=== PATIENT | female | born 1980 | race Caucasian/White ===

== ENCOUNTER → 2022-05-12 10:00 | Outpatient (CLI) | payer BC, SELFPAY ==
--- NOTE | 2022-05-12 10:09 | DI.MG.S_ITS ---
BILATERAL DIGITAL SCREENING MAMMOGRAM 3D/2D WITH CAD: 05/12/2022 CLINICAL: Baseline exam. Routine screening. No prior exams were available for comparison. Both breasts are heterogeneously dense, which may obscure small masses (category c / 51-75% glandular tissue). Current study was also evaluated with a Computer Aided Detection (CAD) system. There are regional punctate round calcifications in the right breast at 12 o'clock posterior depth. There is a 1.6 cm oval equal density focal asymmetry in the left breast central to the nipple middle depth. No other significant masses or calcifications are seen in either breast. IMPRESSION: INCOMPLETE: NEEDS ADDITIONAL IMAGING EVALUATION The regional punctate round calcifications in the right breast at 12 o'clock posterior depth are indeterminate. Spot magnification views are recommended. The 1.6 cm oval equal density focal asymmetry in the left breast central to the nipple middle depth resembles a cyst, a lymph node, or a fibroadenoma and is indeterminate. Additional views with possible ultrasound are recommended. Based on the Tyrer Cuzick model (a risk assessment model) the patient's lifetime risk is 11.1% and her 10 year risk is 1.6%. According to the ACR, ACS, and NCCN guidelines, an annual breast MRI exam along with mammogram is recommended if the patient's lifetime risk is 20% or greater. This exam was interpreted at Station ID: [id number]. NOTE: For mammograms, a report in lay terms will be sent to the patient. Approximately 15% of breast malignancies will not be visualized mammographically. In the management of a palpable breast mass, a negative mammogram must not discourage biopsy of a clinically suspicious lesion. Electronically Signed By: Raciel correa/:05/14/2022 07:32:42 letter sent: Additional Imaging Needed ACR BI-RADS Category 0: Incomplete 3340F
== END ==
PROVIDERS: PCP Family Medicine; Referring Provider Family Medicine; Visit Provider Family Medicine
DX: Z12.31 Encounter for screening mammogram for malignant neoplasm of breast (principal)
CPT/HCPCS: 77063; 77067

== ENCOUNTER 2022-09-03 08:03 | Observation (INO) | payer BC, SELFPAY ==
[2022-09-03] VITALS (22 sets, daily range): BP systolic 123–167; BP diastolic 62–91; PULSE 61–84; RESP 12–18; TEMP 36.2–37.6; O2SAT 95–99; BMI 31.1
--- NOTE | 2022-09-03 | PATH_ITS ---
[facility] Accession Number: [id number] No. of containers..01 Tissue . 01 Material submitted: . gallbladder - GALLBLADDER . 01 Diagnosis: Gallbladder, Cholecystectomy: Mixed acute and chronic calculous cholecystitis. Negative for significant atypia and malignancy. [facility] 09/06/2022 1316 Local . 01 Electronically signed: . Barbra Lopez MD, Pathologist NPI- [id number] . 01 Gross description: . The specimen is received in formalin labeled with the patient's name, , and gallbladder, and consists of an intact gallbladder measuring 7.7 x 3.3 x 2.0 cm. The cystic duct is received closed with a clamp, is inked blue, and no pericystic lymph node is identified. The lumen contains a minimal amount of brown viscous bile. Numerous yellow to green, roughened calculi measuring up to 2.7 cm in greatest dimension are grossly obstructing the cystic duct. The mucosa is brown and velvety with multiple pinpoint yellow areas consistent with cholesterol and minor areas of denuding consistent with previous gallstones. No polyps or lesions are identified. The mooney average 0.2 cm thick. Quality Controller sections to include the cystic duct margin and full-thickness sections are submitted in cassette A1. ([id number]) /FRR 09/05/2022 0247 Local . 01 Pathologist provided ICD-10: K81.0 . 01 CPT . 463104 Specimen Comment: A courtesy copy of this report has been sent to [phone] Performed at: 01 [facility] [address] [place] [address] [address] [facility], [place], [place] [id number] MD Julio Bustos MD Phone: [phone]
--- NOTE | 2022-09-03 08:25 | ED_ITS ---
HPI - Abdominal Pain General Chief Complaint: Abdominal Pain Stated Complaint: RT side hurts throwing up Time Seen by Provider: 09/03/22 08:25 Source: patient Mode of arrival: Family Vehicle Limitations: no limitations History of Present Illness HPI narrative: This is a 41-year-old female with history of prior C-sections, denies any daily medications with complaint of sudden onset right-sided abdominal pain. Patient states it woke her from sleep this morning. She states she is had nausea and vomiting. She denies fevers or chills denies chest pain or shortness of breath. States her emesis was nonbloody. Patient states pain is sort of right upper abdomen does not really radiate to her back or flank. She denies any lower abdominal pain. She denies any left-sided pain. Patient states has been persistent. She denies diarrhea, constipation or black or bloody stools. No dysuria, urgency, frequency or hematuria. No vaginal bleeding or discharge. Patient states she has not IUD in place. Patient has not had similar symptoms in the past she states she is had prior denies any other prior surgeries. She states she gets a rash from tetracycline which occurred when she was a child. No other known drug allergies. No tobacco, denies alcohol or illicit drug use. Patient states she did not take anything for pain or nausea before she arrived. She is accompanied by her sister today. Patient's primary care is Dr. Carroll. Related Data Previous Rx's Medication Instructions Recorded hydrocodone 5 mg-acetaminophen 325 1 tab PO Q8H PRN pain #10 tabs 09/03/22 mg tablet Allergies Allergy/AdvReac Type Severity Reaction Status Date / Time Tetracyclines Allergy Rash Verified 09/03/22 15:03 Review of Systems Review of Systems ROS Unobtainable: All systems reviewed & are unremarkable except as noted in HPI and below Patient History Social History household members: family Smoking Status: Never smoker alcohol intake: never Smoking Status: Never smoker Substance Use Type: does not use Exam Narrative Exam Narrative: GENERAL: Alert and oriented x three, moderate distress. HEENT: Head normocephalic, atraumatic, EOMI, pupils reactive, face symmetric, moist mucous membranes NECK: Supple, full range of motion CARDIOVASCULAR: Regular rate and rhythm without murmurs, rubs or gallops. RESPIRATORY: Breath sounds equal bilaterally, no wheezes rales or rhonchi. ABDOMEN: Soft, positive for right upper quadrant. Normoactive bowel sounds all 4 quadrants. No guarding or rebound, rigidity, no mass, no hepatosplenomegaly noted. : No CVA tenderness bilaterally. EXTREMITIES: Normal range of motion, no clubbing or edema. Neurovascularly intact NEUROLOGICAL: Cranial nerves II through XII grossly intact. Moving all extremities SKIN: Warm, dry, no petechiae, no rashes or lesions. Initial Vital Signs Initial Vital Signs: Vital Signs Temperature 97.2 F L 09/03/22 08:11 Pulse Rate 69 09/03/22 08:11 Respiratory Rate 16 09/03/22 08:11 Blood Pressure 150/72 H 09/03/22 08:11 Pulse Oximetry 99 09/03/22 08:11 Oxygen Delivery Method Room Air 09/03/22 08:11 Course Orders Ordered: ED Orders 09/03/22 09:40 Urine Culture Stat Urine Microscopic Stat 09/03/22 10:53 COVID19 -Nasal RAPID Stat Discontinued Medications Bupivacaine HCl/Epinephrine Bitart (Bupivacaine 0.25% W/ Epi 30 Ml Vial) 30 ml INJ INTRA-OP ONE Stop: 09/03/22 15:30 Last Admin: 09/03/22 15:29 Dose: 13 ml Documented By: Hydromorphone HCl (Hydromorphone 2 Mg Inj) 0 mg IV Q5MIN PRN PRN Reason: Pain, Mild (1-3) Sodium Chloride (Normal Saline 0.9%) 1,000 mls @ 1,000 mls/hr IV BOLUS ONE Stop: 09/03/22 09:33 Last Infusion: 09/03/22 09:38 Dose: 0 mls/hr Documented By: Admin: 09/03/22 08:41 Dose: 1,000 mls/hr Documented By: AT Piperacillin Sod/Tazobactam (Sod 4.5 gm/ Sodium Chloride) 100 mls @ 200 mls/hr IV NOW ONE Stop: 09/03/22 10:54 Last Infusion: 09/03/22 12:13 Dose: 0 mls/hr Documented By: Admin: 09/03/22 11:09 Dose: 200 mls/hr Documented By: AT Lactated Ringer's (Lactated Ringers) 1,000 mls @ 42 mls/hr IV CONT ANTOINE Last Admin: 09/03/22 15:05 Dose: 42 mls/hr Documented By: PEDRITO Cefazolin Sodium/Dextrose (Ancef) 100 mls @ 200 mls/hr IV NOW ONE Stop: 09/03/22 15:27 Last Infusion: 09/03/22 15:22 Dose: 0 mls/hr Documented By: Admin: 09/03/22 15:12 Dose: 200 mls/hr Documented By: AYANNA Acetaminophen (Ofirmev) 1,000 mg in 100 mls @ 400 mls/hr IV NOW ONE Stop: 09/03/22 15:12 Last Infusion: 09/03/22 15:27 Dose: 0 mls/hr Documented By: Admin: 09/03/22 15:22 Dose: 400 mls/hr Documented By: AYANNA Ketorolac Tromethamine (Ketorolac 30 Mg/Ml Vial) 15 mg IV NOW ONE Stop: 09/03/22 08:35 Last Admin: 09/03/22 08:41 Dose: 15 mg Documented By: AT Ketorolac Tromethamine (Ketorolac 30 Mg/Ml Vial) 15 mg IV Q6H ANTOINE Stop: 09/08/22 10:57 Metoclopramide HCl (Metoclopramide 10 Mg/2 Ml Inj) 10 mg IV NOW PRN PRN Reason: Nausea And Vomiting Morphine Sulfate (Morphine 2 Mg/Ml Inj) 2 mg IV Q4HR PRN PRN Reason: Pain, Moderate (4-6) Last Admin: 09/03/22 11:08 Dose: 2 mg Documented By: AT Ondansetron HCl (Ondansetron 4 Mg Odt) 4 mg PO NOW PRN PRN Reason: Nausea And Vomiting Ondansetron HCl (Ondansetron 4 Mg/2 Ml Inj) 4 mg IV NOW PRN PRN Reason: Nausea And Vomiting Last Admin: 09/03/22 08:41 Dose: 4 mg Documented By: AT Oxycodone HCl (Oxycodone Ir 5 Mg Tablet) 5 mg PO PACUNOW PRN PRN Reason: Mild or moderate pain Last Admin: 09/03/22 16:56 Dose: 5 mg Documented By: CB Vital Signs Vital signs: Vital Signs - 8 hr 09/03/22 10:30 09/03/22 10:30 09/03/22 11:00 Pulse Rate 81 75 Respiratory Rate 18 Blood Pressure 138/72 Pulse Oximetry 97 99 Oxygen Delivery Method Room Air 09/03/22 11:01 09/03/22 11:01 Pulse Rate 84 Respiratory Rate Blood Pressure 167/70 H Pulse Oximetry 99 Oxygen Delivery Method MDM - Abdominal Pain Lab Data 09/03/22 09:00 09/03/22 09:00 Labs: Lab Results 09/03/22 09/03/22 09/03/22 Range/Units 09:00 09:00 09:40 WBC 18.4 H (4.5-11.0) X10^3/uL RBC 5.67 H (4.0-5.2) X10^6/uL Hgb 15.8 (12.0-16.0) g/dL Hct 47.5 H (36-46) % MCV 83.8 (80-100) fL MCH 27.9 (26-34) PG MCHC 33.3 (30-36) % RDW 14.3 (11.6-14.8) % Plt Count 314 (150-400) X10^3/uL Neut % (Auto) 91.1 H (50-75) % Lymph % (Auto) 5.6 L (25-40) % [place] % (Auto) 2.9 L (3-14) % Eos % (Auto) 0.1 L (2-4) % Baso % (Auto) 0.3 (0-2) % Neut # (Auto) 53684 H (2451-7984) /uL Lymph # (Auto) 1000 L (0317-3904) /uL [place] # (Auto) 500 (0-900) /uL Eos # (Auto) 0 (0-450) /uL Baso # (Auto) 100 (0-100) /uL Sodium 141 (137-145) mmol/L Potassium 3.3 L (3.4-5.1) mmol/L Chloride 107 (98-107) mmol/L Carbon Dioxide 22 (22-32) mmol/L BUN 8 (7-17) mg/dL Creatinine 0.69 (0.52-1.04) mg/dL Estimated GFR > 60 (>60) mL/min BUN/Creatinine Ratio 11.6 (6-22) Glucose 113 H (70-100) mg/dL Calcium 9.6 (8.4-10.2) mg/dL Total Bilirubin 0.7 (0.2-1.3) mg/dL AST 25 (14-36) IU/L ALT 25 (<35) IU/L Alkaline Phosphatase 77 (38-126) U/L Total Protein 8.5 H (6.3-8.2) g/dL Albumin 4.8 (3.5-5.0) g/dL Globulin 3.7 (1.7-4.1) g/dL Albumin/Globulin Ratio 1.3 (1.0-2.8) Lipase 71 (23-300) U/L Urine RBC None seen (0-5/HPF) Urine WBC None seen (0-5/HPF) Ur Squamous Epith Cells 1-5 /hpf (0-5/HPF) Urine Bacteria Moderate (10-30) H (None) Ur Culture Indicated? Specimen cultured SARS-CoV-2 (PCR) (Negative) 09/03/22 Range/Units 10:53 WBC (4.5-11.0) X10^3/uL RBC (4.0-5.2) X10^6/uL Hgb (12.0-16.0) g/dL Hct (36-46) % MCV (80-100) fL MCH (26-34) PG MCHC (30-36) % RDW (11.6-14.8) % Plt Count (150-400) X10^3/uL Neut % (Auto) (50-75) % Lymph % (Auto) (25-40) % [place] % (Auto) (3-14) % Eos % (Auto) (2-4) % Baso % (Auto) (0-2) % Neut # (Auto) (1348-3121) /uL Lymph # (Auto) (2613-1891) /uL [place] # (Auto) (0-900) /uL Eos # (Auto) (0-450) /uL Baso # (Auto) (0-100) /uL Sodium (137-145) mmol/L Potassium (3.4-5.1) mmol/L Chloride (98-107) mmol/L Carbon Dioxide (22-32) mmol/L BUN (7-17) mg/dL Creatinine (0.52-1.04) mg/dL Estimated GFR (>60) mL/min BUN/Creatinine Ratio (6-22) Glucose (70-100) mg/dL Calcium (8.4-10.2) mg/dL Total Bilirubin (0.2-1.3) mg/dL AST (14-36) IU/L ALT (<35) IU/L Alkaline Phosphatase (38-126) U/L Total Protein (6.3-8.2) g/dL Albumin (3.5-5.0) g/dL Globulin (1.7-4.1) g/dL Albumin/Globulin Ratio (1.0-2.8) Lipase (23-300) U/L Urine RBC (0-5/HPF) Urine WBC (0-5/HPF) Ur Squamous Epith Cells (0-5/HPF) Urine Bacteria (None) Ur Culture Indicated? SARS-CoV-2 (PCR) Negative (Negative) Point of care testing: Point of Care Testing Test Results Negative Urine Dip Bedside Urine Glucose Negative Bedside Urine Bilirubin - Negative Bedside Urine Ketone + 15 Urine Specific [place] 1.025 Bedside Urine Occult Blood - Negative Bedside Urine pH 6.0 Bedside Urine Protein + 30 Bedside Urine Urobilinogen - Negative Bedside Urine Nitrite - Negative Bedside Urine Leukocytes - Negative Esterase Imaging Data US - abdomen: Radiologist's Impression: [place] [address] Ultrasound Report Signed Patient: Ashtyn Robles MR#: [id number] : 1980 Acct:[id number] Age/Sex: 41 / F Date of Service: 09/03/22 Loc: ED Accession Number: [id number] ?? Procedure: US abdomen limited Ordering Provider: Cat Feliciano D.O. PROCEDURE: US ABDOMEN LIMITED ? INDICATIONS:? RIGHT UPPER QUADRANT PAIN ? TECHNIQUE:? Real-time focused scanning was performed of the abdomen, with image doc umentation.? ? COMPARISON:? None. ? FINDINGS:? Liver measures 15.6 cm.? There are multiple foci of increased echogenicity within the gallbladder the largest measuring 2.7 cm. Wall thickness measures 3.4 mm. Common bile duct measures 6.3 mm. ? IMPRESSION:? Cholelithiasis with wall thickening most suspicious for cholecystitis. ? ? Dictated by: Cris Valdivia M.D. on 09/03/2022 at 10:38 ? ? Approved by: Cris Valdivia M.D. on 09/03/2022 at 10:38?? [facility] Narrative Medical decision making narrative: This is a 41-year-old female with sudden onset right upper quadrant pain nausea and vomiting. Patient states it woke her from sleep. She denies prior episodes in the past. Patient is quite tender in the right upper quadrant, she is not tender in the right lower quadrant. Vital signs are stable. Patient I suspect may have gallbladder disease. Patient had CBC, CMP, lipase, urine and plan for right upper quadrant ultrasound. Patient received medication for nausea and vomiting as well as pain fluids. These show patient ultrasound shows cholelithiasis with wall thickening suspicious for cholecystitis multiple foci including largest 2.7 cm suspicious for possible stone. Patient pain was improved after Toradol. Discussed findings with patient as well as Dr. Johns who is on for General surgery. Plan for admission for cholecystectomy, patient was covered with a dose of IV Zosyn, she given some additional pain medication as pain is improved but was starting to recur she is NPO. Patient has not met septic criteria so was not given 30 cc/kilos bolus and lactate cultures were not obtained as patient appears nontoxic without any other septic criteria. Discharge Plan Departure Patient Disposition: Admitted as Observation Clinical Impression: Cholelithiasis, Acute cholecystitis Admit Date/Time: 09/03/22 11:06 Admit Provider: Kishor Johns
--- NOTE | 2022-09-03 08:34 | DI.US.S_ITS ---
PROCEDURE: US ABDOMEN LIMITED INDICATIONS: RIGHT UPPER QUADRANT PAIN TECHNIQUE: Real-time focused scanning was performed of the abdomen, with image documentation. COMPARISON: None. FINDINGS: Liver measures 15.6 cm. There are multiple foci of increased echogenicity within the gallbladder the largest measuring 2.7 cm. Wall thickness measures 3.4 mm. Common bile duct measures 6.3 mm. IMPRESSION: Cholelithiasis with wall thickening most suspicious for cholecystitis. Dictated by: Cris Valdivia M.D. on 09/03/2022 at 10:38 Approved by: Cris Valdivia M.D. on 09/03/2022 at 10:38
[2022-09-03] MEDS: ONDANSETRON 4 MG/2 ML INJ IV (08:41)
[2022-09-03] MEDS: SODIUM CHLORIDE 0.9% 1,000 ML 1000 ML IV (08:41)
[2022-09-03] MEDS: KETOROLAC 30 MG/ML VIAL 15 MG IV (08:41)
[2022-09-03 09:07] LABS: Add Manual Diff / Slide Review NO; Basophils Absolute Auto 100 /uL (0-100); Basophils Percent Auto 0.3 % (0-2); Eosinophils Absolute Auto 0 /uL (0-450); Eosinophils Percent Auto 0.1 % (2-4); Hematocrit 47.5 % (36-46); Hemoglobin 15.8 g/dL (12.0-16.0); Lymphocytes Absolute Auto 1000 /uL (1100-4500); Lymphocytes Percent Auto 5.6 % (25-40); Mean Corpuscular HGB Conc 33.3 % (30-36); Mean Corpuscular Hemoglobin 27.9 PG (26-34); Mean Corpuscular Volume 83.8 fL (80-100); Monocytes Absolute Auto 500 /uL (0-900); Monocytes Percent Auto 2.9 % (3-14); Neutrophils Absolute Auto 16700 /uL (1500-7000); Neutrophils Percent Auto 91.1 % (50-75); Platelet Count 314 X10^3/uL (150-400); Red Blood Cell Count 5.67 X10^6/uL (4.0-5.2); Red Cell Distribution Width 14.3 % (11.6-14.8); White Blood Cell Count 18.4 X10^3/uL (4.5-11.0)
[2022-09-03 09:20] LABS: Alanine Aminotransferase 25 IU/L (<35); Albumin 4.8 g/dL (3.5-5.0); Albumin Globulin Ratio 1.3 (1.0-2.8); Alkaline Phosphatase 77 U/L (38-126); Aspartate Aminotransferase 25 IU/L (14-36); BUN Creatinine Ratio 11.6 (6-22); Bilirubin Total 0.7 mg/dL (0.2-1.3); Blood Urea Nitrogen 8 mg/dL (7-17); Calcium 9.6 mg/dL (8.4-10.2); Carbon Dioxide 22 mmol/L (22-32); Chloride 107 mmol/L (98-107); Estimated Glomerular Filt Rate > 60 mL/min (>60); Globulin 3.7 g/dL (1.7-4.1); Glucose 113 mg/dL (70-100); HEMOLYSIS < 15 (0-50); Lipase 71 U/L (23-300); Potassium 3.3 mmol/L (3.4-5.1); Sodium 141 mmol/L (137-145); Total Protein 8.5 g/dL (6.3-8.2)
[2022-09-03 10:03] LABS: Bacteria Urine Moderate (10-30); Culture Indicated Urine Specimen Cultured; RBC Urine None Seen (0-5/HPF); Squamous Epithelial Cell Urine 1-5 /HPF (0-5/HPF); WBC Urine None Seen (0-5/HPF)
[2022-09-03] MEDS: MORPHINE 2 MG/ML INJ IV (11:08)
[2022-09-03] MEDS: PIPERACILLIN/TAZO 4.5 GM in SODIUM CHLORIDE 0.9% 100 ML IV (11:09)
[2022-09-03 11:23] LABS: COVID19 -Nasal RAPID Negative (Negative)
--- NOTE | 2022-09-03 12:45 | PM.HP.1 ---
History of Present Illness History of Present Illness Date Patient Seen: 09/03/22 Time Patient Seen: 12:46 Chief complaint: RT side hurts throwing up Narrative: Ashtyn is a 41-year-old woman who presented to the emergency department today with right-sided abdominal pain and nausea and vomiting. The pain came on this morning and woke her from sleep. She reports that the pain was unbearable before she got medicated in the ER. She has never had similar pain like this before. White count was elevated but liver enzymes were normal. Ultrasound showed gallstones and thickening of the gallbladder wall. Patient History Family & Social History Safety & Behavioral: Feels Safe in Current Yes Environment Been Physically Hurt or No Threatened By a Person Tobacco & Substance use: Smoking Status Never smoker Substance Use Type does not use Meds Home Medications and Allergies Allergies Allergy/AdvReac Type Severity Reaction Status Date / Time Tetracyclines Allergy Rash Verified 09/03/22 08:13 Exam Vital Signs (past 8 hours): - 09/03/22 08:11 09/03/22 09:23 09/03/22 09:30 Temperature 97.2 F L Pulse Rate 69 74 78 Respiratory Rate 16 Blood Pressure 150/72 H Pulse Oximetry 99 97 97 Oxygen Delivery Method Room Air 09/03/22 09:41 09/03/22 09:41 09/03/22 10:00 Temperature Pulse Rate 74 Respiratory Rate Blood Pressure 136/71 130/63 Pulse Oximetry 95 Oxygen Delivery Method Room Air 09/03/22 10:00 09/03/22 10:30 09/03/22 10:30 Temperature Pulse Rate 79 81 Respiratory Rate Blood Pressure 138/72 Pulse Oximetry 97 97 Oxygen Delivery Method 09/03/22 11:00 09/03/22 11:01 09/03/22 11:01 Temperature Pulse Rate 75 84 Respiratory Rate 18 Blood Pressure 167/70 H Pulse Oximetry 99 99 Oxygen Delivery Method Room Air Oxygen Delivery Method Room Air Narrative Exam Narrative: Right upper quadrant is tender to palpation Objective Labs 09/03/22 09:00 09/03/22 09:00 Labs: Laboratory Results - last 24 hr 09/03/22 09/03/22 09/03/22 09:00 09:00 09:40 WBC 18.4 H RBC 5.67 H Hgb 15.8 Hct 47.5 H MCV 83.8 MCH 27.9 MCHC 33.3 RDW 14.3 Plt Count 314 Neut % (Auto) 91.1 H Lymph % (Auto) 5.6 L [place] % (Auto) 2.9 L Eos % (Auto) 0.1 L Baso % (Auto) 0.3 Neut # (Auto) 01996 H Lymph # (Auto) 1000 L [place] # (Auto) 500 Eos # (Auto) 0 Baso # (Auto) 100 Sodium 141 Potassium 3.3 L Chloride 107 Carbon Dioxide 22 BUN 8 Creatinine 0.69 Estimated GFR > 60 BUN/Creatinine Ratio 11.6 Glucose 113 H Calcium 9.6 Total Bilirubin 0.7 AST 25 ALT 25 Alkaline Phosphatase 77 Total Protein 8.5 H Albumin 4.8 Globulin 3.7 Albumin/Globulin Ratio 1.3 Lipase 71 Urine RBC None seen Urine WBC None seen Ur Squamous Epith Cells 1-5 /hpf Urine Bacteria Moderate (10-30) H Ur Culture Indicated? Specimen cultured SARS-CoV-2 (PCR) 09/03/22 10:53 WBC RBC Hgb Hct MCV MCH MCHC RDW Plt Count Neut % (Auto) Lymph % (Auto) [place] % (Auto) Eos % (Auto) Baso % (Auto) Neut # (Auto) Lymph # (Auto) [place] # (Auto) Eos # (Auto) Baso # (Auto) Sodium Potassium Chloride Carbon Dioxide BUN Creatinine Estimated GFR BUN/Creatinine Ratio Glucose Calcium Total Bilirubin AST ALT Alkaline Phosphatase Total Protein Albumin Globulin Albumin/Globulin Ratio Lipase Urine RBC Urine WBC Ur Squamous Epith Cells Urine Bacteria Ur Culture Indicated? SARS-CoV-2 (PCR) Negative Assessment & Plan Assessment and plan (1) Acute cholecystitis: Status: Acute Plan 41-year-old woman with symptomatic cholelithiasis versus acute cholecystitis. We reviewed the risks and benefits of laparoscopic cholecystectomy and she would like to proceed. Time Spent With Patient Critical Care time: I spent a total of [] minutes of critical care time on this patient's care today; this time is exclusive of procedural time.
[2022-09-03] MEDS: LACTATED RINGERS 1,000 ML 42 ML IV (15:05)
[2022-09-03] MEDS: CEFAZOLIN 2 GM/100 ML PREMIX 100 ML IV (15:12)
[2022-09-03] MEDS: ACETAMINOPHEN IV 1,000 MG/100 ML VIAL 400 MG IV (15:22)
--- NOTE | 2022-09-03 15:24 | SUR.OPER ---
Supine on padded OR bed, head on pillow, safety belt at thigh, Bilateral arms secured on padded arm board <90 degrees abduction. Legs uncrossed. Padded footboard in place. Tape over blanket to secure lower legs. Pt positioned per direction and supervision of Dr Johns.
[2022-09-03] MEDS: BUPIVACAINE 0.25% W/ EPI 30 ML VIAL INJ (15:29)
--- NOTE | 2022-09-03 16:26 | PM.OP.1 ---
Operative Date/Time/Diagnoses Date of procedure: 09/03/22 Time of procedure: 16:26 Pre-op diagnosis: Cholelithiasis Post-op diagnosis: same Procedure & Clinicians Procedure: Laparoscopic cholecystectomy Same procedure as scheduled: Yes Surgeon: Kishor Johns Operative Notes Procedure in detail: The patient was given preoperative antibiotics. The patient was brought to the operating room, placed on the table in the supine position. General endotracheal anesthesia was induced. The abdomen was prepped and draped. A time-out was performed. We made a 1 cm infraumbilical incision. We dissected down to the base of the umbilical stalk using cautery. We grasped the umbilical stalk with a Mick clamp to elevate the abdominal wall. We opened the fascia over 1 cm in the midline with cautery. We pierced the peritoneum with a Peon clamp. The Esequiel port was placed and the abdomen was insufflated to 15 mmHg. A 5 mm 30 degree laparoscopic was inserted. There was no evidence of any injury from the entry. Next, we placed 5 mm ports in the subxiphoid position and right upper quadrant at the midclavicular line and anterior axillary line. The patient was then positioned in reverse Trendelenburg and the table was tilted to the left. The gallbladder was quite tense and distended and was partially decompressed by aspirating approximately 30 mL of bile. We then grasped at the dome of the gallbladder and retracted it cephalad. There were some adhesions of visceral adipose tissue to the right liver which were taken down under direct vision with cautery and blunt dissection. We then dissected the cystic structures with a combination of hook cautery and blunt dissection. We obtained a critical view. We placed clips on the cystic duct and artery and divided the cystic duct and artery sharply between the clips. The gallbladder was then dissected off the liver and placed in a specimen retrieval bag. We irrigated the right upper quadrant and all the aspirate returned clear. We then removed the 5 mm ports under direct vision we removed the Esequiel port. We then injected some local into the fascia and closed the fascia with 2 interrupted 0 Vicryl sutures. The skin incisions were closed with 4-0 Monocryl and Steri-Strips were applied. Band-Aids were applied over the Steri-Strips. EBL: 10 mL Specimen: Gallbladder Post-operative Condition: stable Disposition: PACU
[2022-09-03] MEDS: OXYCODONE IR 5 MG TABLET PO (16:56)
--- NOTE | 2022-09-03 17:26 | SUR.PHASEII ---
DC home in with all belongings and her sister. all questions answered, VSS, no n/v.
== END 2022-09-03 17:27 | disposition home or self-care (01) ==
LOC: ED 10:58 → AC 11:07
PROVIDERS: Admitting Provider Surgery; Emergency Provider Emergency Medicine; PCP Family Medicine; Referring Provider Emergency Medicine; Visit Provider Surgery
PROC: 0FT44ZZ Resection of Gallbladder, Percutaneous Endoscopic Approach (ICD-10-PCS; CPT 47562; principal; 2022-09-03 15:30)
DX: K80.20 Calculus of gallbladder without cholecystitis without obstruction (principal); Z20.822 Contact with and (suspected) exposure to COVID-19; K66.0 Peritoneal adhesions (postprocedural) (postinfection)
CPT/HCPCS: 47562; 36415; 76705; 80053; 81003; 81015; 81025; 83690; 85025; 87086; 87635; 96361; 96365; 96375; 99221; 99284; C9803; G0378; J0131; J0330; J0690; J1100; J1885; J2250; J2270; J2405; J2543; J2704; J3010

== ENCOUNTER → 2022-09-26 11:33 | Outpatient (CLI) | payer BC, SELFPAY ==
--- NOTE | 2022-09-26 | DI.MG.S_ITS ---
BILATERAL DIGITAL DIAGNOSTIC MAMMOGRAM 3D/2D WITH ADDITIONAL VIEWS: 09/26/2022 CLINICAL: Additional evaluation requested from prior study. Comparison is made to exam dated: 05/12/2022 mammogram - [facility]. Both breasts are heterogeneously dense, which may obscure small masses (category c / 51-75% glandular tissue). There are benign regional calcifications in the right breast at 12 o'clock posterior depth. On two orthogonal tomographic views, these are seen to be on the skin or just under the skin, not within fibroglandular tissue. A few similar calcifications are also seen in the left breast. There is a 1.4 cm oval mass with a circumscribed margin in the left breast at 12 o'clock posterior depth. This is seen in additional views. No other significant masses or calcifications are seen in either breast. IMPRESSION: INCOMPLETE: NEEDS ADDITIONAL IMAGING EVALUATION The 1.4 cm oval mass in the left breast at 12 o'clock posterior depth is indeterminate. An ultrasound is recommended. Benign regional calcifications are seen in both breasts, confirmed to be on the skin or just under the skin on two orthogonal tomographic views, greater in number on the right side. Based on the Tyrer Cuzick model (a risk assessment model) the patient's lifetime risk is 11.6% and her 10 year risk is 1.7%. According to the ACR, ACS, and NCCN guidelines, an annual breast MRI exam along with mammogram is recommended if the patient's lifetime risk is 20% or greater. This exam was interpreted at Station ID: [id number]. NOTE: For mammograms, a report in lay terms will be sent to the patient. Approximately 15% of breast malignancies will not be visualized mammographically. In the management of a palpable breast mass, a negative mammogram must not discourage biopsy of a clinically suspicious lesion. Electronically Signed By: Real Cam M.D. lc/:09/26/2022 12:52:15 ACR BI-RADS Category 0: Incomplete 3340F
--- NOTE | 2022-09-26 | DI.US.S_ITS ---
LIMITED ULTRASOUND OF LEFT BREAST: 09/26/2022 CLINICAL: Patient returns today to evaluate a focal asymmetry in the left breast. Comparison is made to exams dated: 09/26/2022 mammogram and 05/12/2022 mammogram - [facility]. Real-time ultrasound of the left breast was performed. Prabhakar scale images of the real-time examination were reviewed. There is a 1.3 cm x 0.8 cm x 1 cm oval mass with a circumscribed margin in the left breast at 12 o'clock posterior depth 5 cm from the nipple. This oval mass is hypoechoic with posterior acoustic enhancement. This correlates with mammography findings. IMPRESSION: PROBABLY BENIGN The 1.3 cm x 0.8 cm x 1 cm oval mass in the left breast resembles a fibroadenoma and is probably benign. A follow-up in 6 months is recommended. A follow-up mammogram and an ultrasound in 6 months is recommended to demonstrate stability. This exam was interpreted at Station ID: [id number]. Electronically Signed By: Real Cam M.D. /:09/26/2022 12:54:22 letter sent: Followup Recommended Ultrasound BI-RADS: 3 Probably benign
== END ==
PROVIDERS: PCP Family Medicine; Referring Provider Family Medicine; Visit Provider Family Medicine
DX: R92.8 Other abnormal and inconclusive findings on diagnostic imaging of breast (principal); N63.25 Unspecified lump in the left breast, overlapping quadrants; R92.1 Mammographic calcification found on diagnostic imaging of breast
CPT/HCPCS: 76642; 77066; G0279

== ENCOUNTER 2022-11-05 17:45 | Emergency (ER) | payer BC, SELFPAY ==
[2022-11-05 18:16] VITALS: BP 158/102; PULSE 102; RESP 18; TEMP 36.5; O2SAT 100; BMI 28.8
[2022-11-05] MEDS: GLUCAGON,HUMAN RECOMBINANT 1 MG/ML VIAL IV (19:01)
--- NOTE | 2022-11-05 19:39 | PC.NURSE ---
Glucagon was unsuccessful. Pt still spitting up saliva. ELVIA Winter informed
[2022-11-05] MEDS: diazePAM 10 MG/2 ML SYRINGE 5 MG IV (20:05)
[2022-11-05] MEDS: PANTOPRAZOLE 40 MG VIAL 20 MG IV (20:05)
[2022-11-05 20:16] VITALS: BP 144/99; PULSE 89; RESP 18; O2SAT 97
--- NOTE | 2022-11-05 20:22 | ED.SKABFB ---
HPI - Skin/Abscess/Foreign Bdy <Moy Eldridge PA-C - Last Filed: 11/05/22 20:39> General Chief complaint: Skin/Abscess/Foreign Body Stated complaint: wic sent/food stuck in throat Time Seen by Provider: 11/05/22 18:34 Source: patient Mode of arrival: Ambulatory Limitations: no limitations History of Present Illness HPI narrative: 41-year-old female with a distant history of eating disorders presents to the ED with a food bolus stuck in her throat. Patient states that she bite of her [employer] breakfast sandwich, felt that the food got stuck. Patient has since then unable to swallow her spit or get any fluids down. Patient denies trouble breathing, chest pain, cough. Related Data Allergies Allergy/AdvReac Type Severity Reaction Status Date / Time Tetracyclines Allergy Rash Verified 11/05/22 18:18 Review of Systems <Moy Eldridge PA-C - Last Filed: 11/05/22 20:39> Review of Systems ROS Unobtainable: All systems reviewed & are unremarkable except as noted in HPI and below Constitutional Constitutional: Denies chills, Denies fatigue, Denies fever(s), Denies frequent falls, Denies lethargy and Denies weakness Eyes Eyes: Denies change in vision, Denies eye discharge, Denies irritation and Denies loss of vision ENT Ears, Nose, Mouth, and Throat: Denies change in voice, Reports dysphagia, Denies dizziness, Denies neck pain, Denies sore throat and Denies throat swelling Comments: Food bolus stuck in throat Cardiovascular Cardiovascular: Denies chest pain, Denies irregular heart rhythm, Denies lightheadedness, Denies palpitations, Denies dyspnea, Denies dyspnea on exertion and Denies orthopnea Respiratory Respiratory: Denies cough, Denies dyspnea, Denies dyspnea on exertion and Denies wheezing Gastrointestinal Gastrointestinal: Denies abdominal pain, Denies change in bowel habits, Reports dysphagia, Denies diarrhea, Denies nausea and Denies vomiting Genitourinary Genitourinary: Denies hematuria, Denies flank pain, Denies urinary incontinence and Denies urinary urgency Musculoskeletal Musculoskeletal: Denies back pain, Denies muscle weakness, Denies neck pain, Denies numbness and Denies tingling Integumentary/Breasts Skin/Breast: Denies pruritus, Denies erythema, Denies rash and Denies wounds Neurologic Neurologic: Denies behavioral changes, Denies confusion, Denies dizziness, Denies frequent falls, Denies loss of vision, Denies numbness, Denies tingling and Denies weakness Psychiatric Psychiatric: Denies anxiety, Denies behavioral changes, Denies confusion, Denies depression, Denies homicidal ideation and Denies suicidal ideation Endocrine Endocrine: Denies fatigue, Denies flushing and Denies palpitations Hematologic/Lymphatic Hematologic/Lymphatic: Denies easy bruising Allergic/Immunologic Allergic/Immunologic: Denies urticaria, Denies throat swelling and Denies wheezing Patient History <Moy Eldridge PA-C - Last Filed: 11/05/22 20:39> Social History household members: family Smoking Status: Never smoker alcohol intake: never Smoking Status: Never smoker Substance Use Type: does not use Exam <Moy Eldridge PA-C - Last Filed: 11/05/22 20:39> Narrative Exam Narrative: Const General:?cooperative, healthy appearing and comfortable [facility] Head:?normal to inspection Ears:?hearing grossly normal bilaterally Nose:?external nose normal Face and sinus:?normal facial exam and sinuses nontender Mouth:?oral mucosae normal Throat:?posterior oropharynx normal; airway is patent Eyes General:?appearance normal, both eyes and all related structures Neck Neck:?normal visual inspection and no lymphadenopathy noted Resp Effort & Inspection:?normal respiratory effort Auscultation:?clear to auscultation bilaterally Cardio Rate:?regular rate Rhythm:?regular rhythm Neuro General:?patient alert, patient awake and patient oriented x3 Initial Vital Signs Initial Vital Signs: Vital Signs Temperature 97.7 F 11/05/22 18:16 Pulse Rate 102 H 11/05/22 18:16 Respiratory Rate 18 11/05/22 18:16 Blood Pressure 158/102 H 11/05/22 18:16 Pulse Oximetry 100 11/05/22 18:16 Oxygen Delivery Method Room Air 11/05/22 18:16 <Armin Piña DO - Last Filed: 11/06/22 05:49> Initial Vital Signs Initial Vital Signs: Vital Signs Temperature 97.7 F 11/05/22 18:16 Pulse Rate 102 H 11/05/22 18:16 Respiratory Rate 18 11/05/22 18:16 Blood Pressure 158/102 H 11/05/22 18:16 Pulse Oximetry 100 11/05/22 18:16 Oxygen Delivery Method Room Air 11/05/22 18:16 Course <Moy Eldridge PA-C - Last Filed: 11/05/22 20:39> Orders Ordered: ED Orders 11/05/22 21:40 COVID19 -Nasal RAPID Stat Discontinued Medications Al Hydrox/Mg Hydrox/Simethicone 20 ml/ Lidocaine HCl 15 ml 0 ml PO NOW ONE Stop: 11/06/22 05:13 Last Admin: 11/06/22 05:25 Dose: 10 ml Diazepam (Diazepam 10 Mg/2 Ml Syringe) 5 mg IV NOW ONE Stop: 11/05/22 19:47 Last Admin: 11/05/22 20:05 Dose: 5 mg Documented By: [facility] Glucagon (Glucagon,Human Recombinant 1 Mg/Ml Vial) 1 mg IV NOW ONE Stop: 11/05/22 18:38 Last Admin: 11/05/22 19:01 Dose: 1 mg Documented By: [facility]U Pantoprazole Sodium (Pantoprazole 40 Mg Vial) 20 mg IV NOW ONE Stop: 11/05/22 19:47 Last Admin: 11/05/22 20:05 Dose: 20 mg Documented By: AMU Vital Signs Vital signs: Vital Signs - 8 hr 11/06/22 05:28 Pulse Rate 80 Respiratory Rate 16 Blood Pressure 135/76 Pulse Oximetry 98 Oxygen Delivery Method Room Air <Armin Piña DO - Last Filed: 11/06/22 05:49> Orders Ordered: ED Orders 11/05/22 21:40 COVID19 -Nasal RAPID Stat Discontinued Medications Al Hydrox/Mg Hydrox/Simethicone 20 ml/ Lidocaine HCl 15 ml 0 ml PO NOW ONE Stop: 11/06/22 05:13 Last Admin: 11/06/22 05:25 Dose: 10 ml Diazepam (Diazepam 10 Mg/2 Ml Syringe) 5 mg IV NOW ONE Stop: 11/05/22 19:47 Last Admin: 11/05/22 20:05 Dose: 5 mg Documented By: [facility]U Glucagon (Glucagon,Human Recombinant 1 Mg/Ml Vial) 1 mg IV NOW ONE Stop: 11/05/22 18:38 Last Admin: 11/05/22 19:01 Dose: 1 mg Documented By: AMU Pantoprazole Sodium (Pantoprazole 40 Mg Vial) 20 mg IV NOW ONE Stop: 11/05/22 19:47 Last Admin: 11/05/22 20:05 Dose: 20 mg Documented By: AMU Reevaluation(s) Reevaluation #1: Patient took GI cocktail, soon thereafter took some chantell denisha and states that she felt the foreign body pass. Since then she is been able to swallow without difficulty, Vital Signs Vital signs: Vital Signs - 8 hr 11/06/22 05:28 Pulse Rate 80 Respiratory Rate 16 Blood Pressure 135/76 Pulse Oximetry 98 Oxygen Delivery Method Room Air MDM - Skin/Abscess/Foreign Bdy <Moy Eldridge PA-C - Last Filed: 11/05/22 20:39> Lab Data Labs: Lab Results 11/05/22 Range/Units 21:40 SARS-CoV-2 (PCR) Negative (Negative) [facility] Narrative Medical decision making narrative: 41-year-old female with a distant history of eating disorders presents to the ED with a food bolus stuck in her throat. Concern for compacted food bolus. Will give IV glucagon, carbonated drink. No improvement after glucagon and chantell denisha. Dr. Garza from surgery was consulted, she suggests volume and a GI cocktail. Patient was given 5 mg of Valium and Protonix IV with no improvement. Held off on the GI cocktail, given patient is not able to tolerate fluids. Patient is also spitting out her saliva every few minutes. Will observe patient and reassess. Patient has been signed out to Dr. Armin Piña at this point. <Armin Piña DO - Last Filed: 11/06/22 05:49> Lab Data Labs: Lab Results 11/05/22 Range/Units 21:40 SARS-CoV-2 (PCR) Negative (Negative) [facility] Narrative Medical decision making narrative: 41-year-old female with a distant history of eating disorders presents to the ED with a food bolus stuck in her throat. Concern for compacted food bolus. Will give IV glucagon, carbonated drink. No improvement after glucagon and chantell denisha. Dr. Garza from surgery was consulted, she suggests volume and a GI cocktail. Patient was given 5 mg of Valium and Protonix IV with no improvement. Held off on the GI cocktail, given patient is not able to tolerate fluids. Patient is also spitting out her saliva every few minutes. Will observe patient and reassess. Patient has been signed out to Dr. Armin Piña at this point. Patient was given GI cocktail, initially she was unable to swallow and so she chose to gargle instead and then states she felt the foreign body go down. After this event she was able to swallow without difficulty repeatedly. Patient appropriate for discharge Discharge Plan Departure Patient Disposition: Home Clinical Impression: Esophageal foreign body Instructions: DI for Foreign Body, Swallowed-Adult Activity Restrictions/Additional Instructions: *You have been diagnosed with [esophageal foreign body resolved] *What to do: *Please continue to take your regular medications as directed. [ ] New medication prescriptions sent to your pharmacy: [ ] [ ] New medication written as a paper prescription [ ] No new medications given *Please follow up with your primary care provider in 2-3 days, call for an appointment. Let them know you were seen in the Emergency Department and that we ask that you be seen in follow up. We will electronically transmit a record of today's note if your PCP is in our system *If you do not have a primary care provider please contact the [facility] Resource line at [phone]. They will ask some questions about your medical history and help get you set up with a doctor in the community. * as we discussed I have given you contact information for Dr. Garza who works with [facility]. Please call the office later today, let them know that you were seen in the emergency department and we would like you seen in follow-up. *Return to Emergency Department if you should have any new, worsening or concerning symptoms, such as [fever greater than 101 F, shaking chills, worsening pain, persistent vomiting or other bothersome symptoms] Referrals: Bianka Garza MD [Physician] - Mae Carroll MD [Primary Care Provider] - Stand Alone Forms: Patient Portal/API <Armin Piña DO - Last Filed: 11/06/22 05:49> Cosign ED Attending Coscedrickature Attestation: I was immediately available in the department for consultation. This documentation has been reviewed and I agree with assessment and plan. Supervised by Armin Piña DO
[2022-11-05 21:58] LABS: COVID19 -Nasal RAPID Negative (Negative)
[2022-11-06] MEDS: MAG HYDROX/ALUMINUM/SIMETH SUS 20 ML, LIDOCAINE VISCOUS 2% 15 ML PO (05:25)
[2022-11-06 05:28] VITALS: BP 135/76; PULSE 80; RESP 16; O2SAT 98
== END 2022-11-06 05:49 | disposition home or self-care (01) ==
PROVIDERS: Emergency Medicine; Emergency Provider Student in an Organized Health Care Education/Training Program; PCP Family Medicine
DX: T18.108A Unspecified foreign body in esophagus causing other injury, initial encounter (principal); R13.10 Dysphagia, unspecified; Z20.822 Contact with and (suspected) exposure to COVID-19
CPT/HCPCS: 87635; 96374; 96375; 99284; C9803; C9113; J1610; J3360

== ENCOUNTER 2022-12-13 12:43 | Day surgery (SDC) | payer BC, SELFPAY ==
--- NOTE | 2022-12-13 | PATH_ITS ---
[facility] Accession Number: [id number] No. of containers..02 Tissue . 01 Material submitted: . PART A: gastrointestinal site - ANTRUM PART B: esophagus, E-G Junction - GE JUNCTION . 01 Diagnosis: A. Antrum, Biopsy: Gastric mucosa with minimal chronic nonspecific inflammation. No Helicobacter pylori organisms identified on immunohistochemical evaluation. No intestinal metaplasia, dysplasia or malignancy. . B. GE Junction, Biopsy: Squamocolumnar junction mucosa with ulceration and changes consistent with reflux. No goblet cell metaplasia or fungal organisms identified on special stain (AB-PAS) with control staining appropriately. No dysplasia or malignancy. [facility] 12/21/2022 1136 Local . 01 Electronically signed: . Christine Olivares MD, Pathologist NPI- [id number] . 01 Gross description: . A. Received in formalin labeled with the patient's name, and antrum consists of four oliva soft tissue fragments ranging from 0.2 to 0.3 cm in greatest dimension. Submitted entirely in cassette A1. B. Received in formalin labeled with the patient's name, and GE junction consists of multiple oliva soft tissue fragments aggregating to 1.3 x 0.4 x 0.1 cm. Filtered and submitted in B1. ([id number]) /MRV 12/19/2022 1707 Local . 01 Microscopic: . A. An immunohistochemical stain was performed to evaluate for Helicobacter organisms and is negative. The control stain showed appropriate reactivity. . . * This test was developed and its performance characteristics determined by [employer] It has not been cleared or approved by the U.S. Food and Drug Administration. The FDA has determined that such clearance or approval is not necessary. This test is used for clinical purposes. It should not be regarded as investigational or for research. . 01 Pathologist provided ICD-10: K21.00, K22.10, K29.30 . 01 CPT . 729445, 788096, V90650, 120638 Specimen Comment: A courtesy copy of this report has been sent to [phone] Performed at: 01 [facility] [address] [place] [address], [place], [place] [id number] MD Julio Bustos MD Phone: [phone]
[2022-12-13] MEDS: LACTATED RINGERS 1,000 ML 42 ML IV (13:00)
--- NOTE | 2022-12-13 13:42 | P.HP_ITS ---
History of Present Illness History of Present Illness Date Patient Seen: 12/13/22 Time Patient Seen: 13:42 Chief complaint: Dx Colonoscopy Narrative: Ashtyn is here for her EGD. See prior office note for details. She has not had any further episodes of dysphagia since that visit. [facility] Social History household members: family Smoking Status: Never smoker alcohol intake: never Meds Home Medications and Allergies Home Medications Medication Instructions Recorded Confirmed Type No Known Home Medications 11/12/22 11/12/22 History Allergies Allergy/AdvReac Type Severity Reaction Status Date / Time Tetracyclines Allergy Rash Verified 12/13/22 12:56 Exam Const General: healthy appearing Nutritional Appearance: well nourished Assessment & Plan Assessment and plan (1) Dysphagia: Status: Acute Plan We reviewed the risks and benefits of esophagogastroduodenoscopy and she would like to proceed
--- NOTE | 2022-12-13 13:42 | PM.OP.EGD ---
Operative Date/Time/Diagnoses Date of procedure: 12/13/22 Time of procedure: 13:42 Pre-op diagnosis: Dysphagia Post-op diagnosis: same Procedure & Clinicians Study performed: Esophagogastroduodenoscopy Same procedure as scheduled: Yes Surgeon: Kishor Johns Procedure Notes Procedure in detail: Surgeon: Kishor Johns MD Anesthesia: Abril New DO A timeout was performed. A bite blocked was placed. The patient was positioned in the left lateral decubitus position. Anesthesia was administered. The endoscope was inserted through the bite block and passed through the esophagus and stomach and into the duodenum. The duodenal mucosa appeared normal. The scope was withdrawn into the duodenal bulb and no abnormalities were seen. The scope was withdrawn into the stomach. There was mild antritis and random biopsies were taken from the antrum. The rest of the stomach was normal. The scope was retroflexed and a moderate-sized hiatal hernia was seen. The scope was withdrawn into the esophagus and hiatal hernia was measured at 3 cm. There appeared to be long segments of salmon-colored mucosa. Biopsies were taken from the GE junction. The remainder of the esophagus was normal. The scope was withdrawn. The patient was awakened and brought to recovery. Sedation time: 7 minutes Findings: Mild antritis, 3 cm hiatal hernia and long segments of salmon-colored mucosa at the GE junction Post-procedure Disposition: PACU
[2022-12-13 15:26] VITALS: BP 139/88; PULSE 86; RESP 15; TEMP 36.4; O2SAT 97
[2022-12-13 15:31] VITALS: BP 133/92; PULSE 79; RESP 12; O2SAT 97
[2022-12-13 15:36] VITALS: BP 132/92; PULSE 70; RESP 13; O2SAT 100
[2022-12-13 15:41] VITALS: BP 138/96; PULSE 67; RESP 15; TEMP 36.7; O2SAT 98
[2022-12-13 15:45] VITALS: BP 130/91; PULSE 69; RESP 16; TEMP 36.7; O2SAT 98
[2022-12-13 15:47] VITALS: BMI 30.2
== END 2022-12-13 16:00 | disposition home or self-care (01) ==
PROVIDERS: PCP Family Medicine; Referring Provider Surgery; Visit Provider Surgery
PROC: 0DJ08ZZ Inspection of Upper Intestinal Tract, Via Natural or Artificial Opening Endoscopic (ICD-10-PCS; CPT 43235; principal; 2022-12-13 13:45)
DX: R13.10 Dysphagia, unspecified (principal); K29.50 Unspecified chronic gastritis without bleeding; K44.9 Diaphragmatic hernia without obstruction or gangrene; K22.10 Ulcer of esophagus without bleeding
CPT/HCPCS: 43239; J2704

== ENCOUNTER → 2023-04-29 10:10 | Outpatient (CLI) | payer BC, SELFPAY ==
--- NOTE | 2023-04-29 10:13 | DI.MG.S_ITS ---
BILATERAL DIGITAL DIAGNOSTIC MAMMOGRAM 3D/2D: 04/29/2023 CLINICAL: Short term follow up, due bilateral. Comparison is made to exams dated: 09/26/2022 mammogram, 05/12/2022 mammogram, and 09/26/2022 ultrasound - [facility]. Both breasts are heterogeneously dense, which may obscure small masses (category c / 51-75% glandular tissue). There is a stable 1.4 cm oval mass with a circumscribed margin in the left breast at 12 o'clock posterior depth. Stable scattered calcifications in the right breast. No other significant masses, calcifications, or other findings are seen in either breast. IMPRESSION: INCOMPLETE: NEEDS ADDITIONAL IMAGING EVALUATION The stable 1.4 cm oval mass in the left breast is indeterminate. A targeted ultrasound is recommended and will immediately follow. Based on the Tyrer Cuzick model (a risk assessment model) the patient's lifetime risk is 11.6% and her 10 year risk is 1.8%. According to the ACR, ACS, and NCCN guidelines, an annual breast MRI exam along with mammogram is recommended if the patient's lifetime risk is 20% or greater. This exam was interpreted at Station ID: [id number]. NOTE: For mammograms, a report in lay terms will be sent to the patient. Approximately 15% of breast malignancies will not be visualized mammographically. In the management of a palpable breast mass, a negative mammogram must not discourage biopsy of a clinically suspicious lesion. Electronically Signed By: Zachariah Hodge M.D. slc/:04/29/2023 10:56:52 ACR BI-RADS Category 0: Incomplete 3340F
--- NOTE | 2023-04-29 10:13 | DI.US.S_ITS ---
LIMITED ULTRASOUND OF LEFT BREAST: 04/29/2023 CLINICAL: Patient returns for a 6 month follow up of the left breast. Comparison is made to exams dated: 04/29/2023 mammogram, 09/26/2022 ultrasound, 09/26/2022 mammogram, and 05/12/2022 mammogram - [facility]. Color flow and real-time ultrasound of the left breast 12 o'clock region were performed. Prabhakar scale images of the real-time examination were reviewed. There is a stable 1.4 cm x 1 cm x 1 cm oval mass in the left breast at 12 o'clock posterior depth 5 cm from the nipple. This oval mass is hypoechoic. This correlates with mammography findings. Color flow imaging demonstrates that there is no vascularity present. IMPRESSION: PROBABLY BENIGN The stable 1.4 cm oval mass in the left breast resembles a fibroadenoma and is probably benign. A follow-up mammogram and an ultrasound in 12 months is recommended to demonstrate long-term stability. Exam findings were conveyed to the patient. Patient is advised to monitor for significant change. This exam was interpreted at Station ID: [id number]. Electronically Signed By: Zachariah Hodge M.D. slc/:04/29/2023 12:20:28 letter sent: Followup Recommended Ultrasound BI-RADS: 3 Probably benign
== END ==
PROVIDERS: PCP Family Medicine; Referring Provider Family Medicine; Visit Provider Family Medicine
DX: R92.8 Other abnormal and inconclusive findings on diagnostic imaging of breast (principal); N63.25 Unspecified lump in the left breast, overlapping quadrants; N64.4 Mastodynia
CPT/HCPCS: 76642; 77066; G0279

== ENCOUNTER → 2024-04-28 13:05 | Outpatient (CLI) | payer BC, SELFPAY ==
--- NOTE | 2024-04-28 13:06 | DI.MG.S_ITS ---
BILATERAL DIGITAL DIAGNOSTIC MAMMOGRAM 3D/2D: 04/28/2024 CLINICAL: Short term follow up, due bilateral. Comparison is made to exams dated: 04/29/2023 mammogram, 09/26/2022 mammogram, and 05/12/2022 mammogram - [facility]. The breasts are heterogeneously dense, which may obscure small masses (category c / 51-75% glandular tissue). There is a 1.4 cm oval mass with a circumscribed margin in the left breast at 12 o'clock posterior depth. This is not significantly changed. There also is a 7 mm irregular high density mass with a spiculated margin in the left breast at 2 o'clock middle depth. This is seen in additional views. This is more prominent and increased in size. No other significant masses, calcifications, or other findings are seen in either breast. IMPRESSION: INCOMPLETE: NEED ADDITIONAL IMAGING EVALUATION The 1.4 cm oval mass in the left breast at 12 o'clock posterior depth is indeterminate. An ultrasound is recommended to document stability. The 7 mm irregular high density mass in the left breast at 2 o'clock middle depth is indeterminate. An ultrasound is recommended. This was performed immediately following this exam. Based on the Tyrer Cuzick model (a risk assessment model) the patient's lifetime risk is 11.5% and her 10 year risk is 2.0%. According to the ACR, ACS, and NCCN guidelines, an annual breast MRI exam along with mammogram is recommended if the patient's lifetime risk is 20% or greater. This exam was interpreted at Station ID: [id number]. NOTE: For mammograms, a report in lay terms will be sent to the patient. Approximately 15% of breast malignancies will not be visualized mammographically. In the management of a palpable breast mass, a negative mammogram must not discourage biopsy of a clinically suspicious lesion. Electronically Signed By: Raina allen/:04/28/2024 14:18:12 letter sent: Additional Imaging Needed ACR BI-RADS Category 0: Incomplete: Need Additional Imaging Evaluation
--- NOTE | 2024-04-28 13:07 | DI.US.S_ITS ---
LIMITED ULTRASOUND OF LEFT BREAST AND AXILLA: 04/28/2024 CLINICAL: Patient returns today to evaluate two focal asymmetries in the left breast. Comparison is made to exams dated: 04/28/2024 mammogram, 04/29/2023 ultrasound, 04/29/2023 mammogram, 09/26/2022 ultrasound, 09/26/2022 mammogram, and 05/12/2022 mammogram - [facility]. Color flow ultrasound of the left breast 12-1 o'clock, and axilla regions was performed. Prabhakar scale images of the real-time examination were reviewed. There is a new 0.9 cm x 1.2 cm x 0.4 cm oval mass with an indistinct, angular, and spiculated margin in the left breast at 1 o'clock middle depth 3 cm from the nipple. This oval mass is hypoechoic with an echogenic boundary and posterior acoustic shadowing. This correlates with new mammography findings. Color flow imaging demonstrates that there is no vascularity present. There also is an oval mass in the left breast at 12 o'clock posterior depth. This oval mass is hypoechoic and heterogeneously echogenic. This abnormality is not significantly changed and correlates with mammography findings. Color flow imaging demonstrates that there is no vascularity present. Additionally, there is a 3 mm oval mass with an indistinct margin in the left breast at 1 o'clock posterior depth. This oval mass is hypoechoic. This correlates as an incidental finding. Color flow imaging demonstrates that there is no vascularity present. No significant abnormalities were seen sonographically in the left axilla. IMPRESSION: SUSPICIOUS The new 0.9 cm x 1.2 cm x 0.4 cm oval mass in the left breast at 1 o'clock middle depth is at a moderate suspicion for malignancy. An ultrasound guided biopsy is recommended. The oval mass in the left breast at 12 o'clock posterior depth most likely is a fibroadenoma and is probably benign. The 3 mm oval mass in the left breast at 1 o'clock posterior depth is probably benign. 6 month follow up ultrasound, or possibly other follow up depending on results of above biopsy, is recommended. Findings and recommendations were discussed with the patient by telephone at time of exam. This exam was interpreted at Station ID: [id number]. Electronically Signed By: Raina allen/:04/28/2024 15:30:19 letter sent: Biopsy Required ACR BI-RADS Category 4B: Suspicious
== END ==
PROVIDERS: PCP Family Medicine; Referring Provider Family Medicine; Visit Provider Family Medicine
DX: N63.21 Unspecified lump in the left breast, upper outer quadrant (principal); N63.25 Unspecified lump in the left breast, overlapping quadrants; N64.4 Mastodynia; R92.8 Other abnormal and inconclusive findings on diagnostic imaging of breast; R92.333 Mammographic heterogeneous density, bilateral breasts
CPT/HCPCS: 76642; 77066; G0279

== ENCOUNTER → 2024-05-25 13:10 | Outpatient (CLI) | payer BC, SELFPAY ==
--- NOTE | 2024-05-25 | DI.US.S_ITS ---
ULTRASOUND GUIDED BIOPSY LEFT BREAST WITH MARKING DEVICE INSERTED AND POST DIGITAL MAMMOGRAPHIC IMAGIN05/25/2024 CLINICAL: Left breast mass. PATIENT CONSENT: Risks (minor bleeding, infection, vasovagal reaction and repeat procedure), benefits and alternatives were explained to the patient and written informed consent was obtained. Correlation is made to exams dated: 05/25/2024 mammogram, 04/28/2024 ultrasound, 04/28/2024 mammogram, 04/29/2023 ultrasound, 04/29/2023 mammogram, and 09/26/2022 ultrasound - [facility]. An ultrasound guided biopsy using real-time ultrasound was performed for the nodule located in the left breast at 1 o'clock middle depth. This was described on the previous ultrasound report. The skin was prepped in the usual manner. Local anesthetic was administered to the access site. A small incision was made in the breast. The abnormality was approached from the lateral aspect. A biopsy needle was placed adjacent to the abnormality under ultrasound guidance. Once the needle was documented to be in the correct location, four specimens were obtained using a BARD biopsy device. The patient received additional local anesthetic during the procedure. A clip was inserted into the biopsy cavity. A skin adhesive was applied to the access site. Post procedure digital mammographic imaging demonstrates the location device at the targeted area. The specimens were sent to the laboratory for pathological analysis. IMPRESSION: ULTRASOUND GUIDED BIOPSY MALIGNANT Ultrasound guided biopsy of the nodule in the left breast at 1 o'clock middle depth was successful with no apparent post procedure complications. Pathology indicates malignant invasive lobular carcinoma (IL). Pathology results are concordant with imaging findings. A surgical/oncologic consultation is recommended. This exam was interpreted at Station ID: [id number]. Pop poe,aty/:05/29/2024 17:06:35
--- NOTE | 2024-05-25 | DI.MG.S_ITS ---
PROCEDURE: MM DIAGNOSTIC MAMMO UNILAT LT2D COMPARISON: None. INDICATIONS: MASS OF LEFT BREAST,ABNORMAL MAMMO FINDINGS: IMPRESSION: Dictated by: Pop Irvin M.D. on 05/25/2024 at 15:29 Approved by: Pop Irvin M.D. on 05/25/2024 at 15:31
--- NOTE | 2024-05-25 14:24 | DI.MG.S_ITS ---
Patient Name: MEENU CARRINGTON date: 1980 Sex: F Attending Physician: Carly Indications: Date: 05/25/2024 15:30 At the request of: RONYCharu MALLORY Procedure: MM diagnostic mammo [id number] UNILATERAL LEFT DIGITAL DIAGNOSTIC MAMMOGRAM 3D/2D POST-PROCEDURE IMAGING FOR MARKER PLACEMENT: 05/25/2024 CLINICAL: Post clip. Comparison is made to exams dated: 04/28/2024 mammogram, 04/29/2023 mammogram, and 09/26/2022 mammogram - [facility]. The breasts are heterogeneously dense, which may obscure small masses (category c / 51-75% glandular tissue). There is a marker clip in the appropriate position in the left breast at 1 o'clock middle depth. This marker clip placement is at the biopsy site. IMPRESSION: POST PROCEDURE MAMMOGRAM FOR MARKER PLACEMENT There was a successful marker clip placement in the left breast middle depth. Based on the Tyrer Cuzick model (a risk assessment model) the patient's lifetime risk is 11.5% and her 10 year risk is 2.0%. According to the ACR, ACS, and NCCN guidelines, an annual breast MRI exam along with mammogram is recommended if the patient's lifetime risk is 20% or greater. This exam was interpreted at Station ID: [id number]. Continued Report - Page 2 of 2 Patient Name: MEENU CARRINGTON date: 1980 Sex: F Attending Physician: Carly Indications: Date: 05/25/2024 15:30 At the request of: RONY MALLORY Procedure: MM diagnostic mammo [id number] NOTE: For mammograms, a report in lay terms will be sent to the patient. Approximately 15% of breast malignancies will not be visualized mammographically. In the management of a palpable breast mass, a negative mammogram must not discourage biopsy of a clinically suspicious lesion. Electronically Signed By: Pop Irvin M.D. jl/:05/25/2024 15:30:52 ACR BI-RADS Category Post-Procedure Mammogram for Marker Placement
--- NOTE | 2024-05-25 14:34 | PATH_ITS ---
[facility] Accession Number: [id number] No. of containers..01 Tissue . 01 Material submitted: . breast - LT BREAST 1:00 3 CM FN . 01 Clinical history: . 4 PASSES . 01 Diagnosis: LEFT BREAST MASS AT 1 O'CLOCK, 3 CM FROM NIPPLE, NEEDLE CORE BIOPSY: Invasive carcinoma of the breast. Please see case summary below. . CASE SUMMARY Specimen Procedure: Needle biopsy. Specimen laterality: Left. Tumor site: 1 o'clock, 3 cm from nipple. Histologic type: Invasive lobular carcinoma. Histologic grade Glandular / tubular differentiation: Score 3 of 3. Nuclear pleomorphism: Score 2 of 3. Mitotic rate: Score 1 of 3. Overall grade: Grade 2 (score 6 of 9). Special studies: Predictive marker immunohistochemical studies are performed on block A1 with the invasive carcinoma showing the following results: . Estrogen receptor (SP1): Positive (91-100%, strong intensity). Progesterone receptor (1E2): Positive (91-100%, strong intensity). Her2 (4B5): Negative for overexpression ( 1+). . Internal controls for ER and GA are positive. Cold ischemic time is not provided. The scoring criteria for breast biomarkers by immunohistochemistry is based on the ASCO/CAP guidelines (Adonis AC et al, J Clin Oncol: 2017Jan 07;36(20):8333-5624 and Darius ME et al, Arch Pathol Lab Med: 2009;134(6):907-22). Deparaffinized sections of formalin fixed tissue (along with appropriate positive controls) are incubated with the above antibody(s). Using the automated Tatitlek stainer, tissue is incubated with the designated antibody which is then localized by a non-biotin, dual polymer detection system. The external controls are reviewed for appropriate reactivity and found to be adequate. Results on the target cell population are indicated above. [facility] 05/27/2024 1531 Local . 01 Comment: This case was also reviewed by Dr. Sary Lopez, who agrees with the interpretation. . Dr. Esperanza Mohan discussed results with Jody Hansen M.A. with Drs. Cruz and Carly, on 05-27-24 at approximately 3:11 p.m. . 01 Electronically signed: . Esperanza Mohan MD, Pathologist NPI- [id number] . 01 Gross description: . Received in formalin with two patient identifiers and left breast 1 o'clock 3 cm FN, are multiple yellow to oliva soft tissue fragments aggregating to 2.0 x 1.2 x 0.2 cm. Filtered, inked green, and submitted entirely in A1. . Fixation: The specimen was removed on 05/25/2024 at 1436. Time in formalin not provided. Cold ischemic time cannot be calculated. Total fixation time is approximately 24 hours. ([id number]) /MRV 05/26/2024 1726 Local . 01 Microscopic: . Immunohistochemistry studies are performed to further evaluate the cells of interest. The control stains show appropriate reactivity. . RESULTS: Block A1 GATA3: Positive, consistent with tumor of breast origin. E-cadherin: Negative, consistent with lobular differentiation. . *This test was developed and the performance characteristics were validated by [employer]. It has not been cleared or approved by the U.S. Food and Drug Administration. . 01 Pathologist provided ICD-10: R92.8, N63.20 . 01 CPT . D78556, J62122, 672392, 266621, 794685, 029229 Specimen Comment: A courtesy copy of this report has been sent to [phone] Performed at: [address] [address], [place], [place] [id number] MD Julio Bustos MD Phone: [phone]
== END ==
PROVIDERS: PCP Family Medicine; Referring Provider Family Medicine; Visit Provider Family Medicine
DX: C50.412 Malignant neoplasm of upper-outer quadrant of left female breast (principal); R92.8 Other abnormal and inconclusive findings on diagnostic imaging of breast; Z17.0 Estrogen receptor positive status [ER+]
CPT/HCPCS: 19083; 77065

== ENCOUNTER → 2024-06-12 15:56 | Outpatient (CLI) | payer BC, SELFPAY ==
--- NOTE | 2024-06-12 15:56 | DI.MRI.S_ITS ---
BREAST MRI OF BOTH BREASTS: 06/12/2024 CLINICAL: Left breast cancer. PROCEDURE: MR BREAST BI WO/W CON INDICATIONS: Left breast cancer TECHNIQUE: The patient was placed prone in a dedicated breast imaging coil. Precontrast axial STIR and 3D FLASH without fat saturation sequences were obtained. Both before and after bolus injection of contrast, sequential 1-minute axial 3D FLASH with fat saturation sequences for 3 time points, with subtraction images and maximum intensity projections (MIP's) generated. Delayed sagittal FLASH images with fat saturation were also obtained. Computer-aided detection, including computer algorithm analysis of MRI image data for lesion detection and characterization, pharmacokinetic analysis, with further physician review for interpretation, was performed. COMPARISON: Mammogram 05/25/2024, 04/28/2024 and breast ultrasound 05/25/2024, 04/28/2024. FINDINGS: Image quality: Diagnostic. There is heterogeneous amount of fibroglandular tissue. There is moderate and symmetric background parenchymal enhancement. Right breast: There is no suspicious enhancement or lymphadenopathy. Left breast: There is an irregular mass with spiculated margins at 1 o'clock middle depth measuring 1.4 x 1.0 x 1.2 cm (AP by ML by SI, , ) corresponding to biopsy proven malignancy. Biopsy clip is at the anterolateral aspect of the mass. There is a mass in the central middle depth (), which is mammographically stable since 05/12/2022 consistent with a benign etiology. There is no suspicious enhancement. IMPRESSION: [id number] MALIGNANCY Left breast biopsy proven unifocal malignancy at 1 o'clock middle depth presenting as a 1.4 cm spiculated mass with biopsy clip at the anterolateral aspect. No suspicious lymphadenopathy. No MRI evidence of malignancy in the right breast. This exam was interpreted at Station ID: [id number]. Electronically Signed By: Sherri Coats M.D., Ph.D. eb/:06/18/2024 22:13:34 ACR BI-RADS Category 6: Prkmp-Yaukog-Hrafus Malignancy
== END ==
PROVIDERS: PCP Family Medicine; Referring Provider Surgery; Visit Provider Surgery
DX: C50.412 Malignant neoplasm of upper-outer quadrant of left female breast (principal)
CPT/HCPCS: 77049; A9579

== ENCOUNTER → 2024-07-08 07:49 | Outpatient (CLI) | payer BC, SELFPAY ==
--- NOTE | 2024-07-08 | DI.MG.S_ITS ---
SPECIMEN- - LEFT BREAST POST LUMPECTOMY: 07/08/2024 CLINICAL: Left breast specimen. Correlation is made to exams dated: 07/08/2024 localization, 07/08/2024 mammogram, 06/12/2024 breast MRI, 04/28/2024 ultrasound, and 04/28/2024 mammogram - [facility]. Left breast lumpectomy specimen contains the biopsy clip and the localization wire. IMPRESSION: SPECIMEN Left breast lumpectomy specimen contains the biopsy clip and the localization wire. This exam was interpreted at Station ID: [id number]. Zachariah Hodge M.D. slc/:07/08/2024 13:52:05
--- NOTE | 2024-07-08 07:51 | DI.NM.S_ITS ---
PROCEDURE: NM SENTINEL NODE INJECT ONLY RADIOPHARMACEUTICAL: 1.06 mCi Millipore filtered Tc-99m sulfur colloid. INDICATIONS: left breast cancer COMPARISON: None. PROCEDURE: The area around the nipple was prepped and draped in a sterile fashion. Tc-99m sulfur colloid was injected intra-dermally around the outer edge of the areola in the left breast. No image was obtained. IMPRESSION: Administration of radiotracer into the left breast periareolar region for intra-operative sentinel lymph node localization. Dictated by: Real Cam M.D. on 07/08/2024 at 13:53 Approved by: Real Cam M.D. on 07/08/2024 at 13:53
== END ==
PROVIDERS: PCP Family Medicine; Referring Provider Surgery; Visit Provider Surgery
DX: C50.912 Malignant neoplasm of unspecified site of left female breast (principal)
CPT/HCPCS: 38792; 76098; A9541

== ENCOUNTER 2024-07-08 07:51 | Day surgery (SDC) | payer BC, SELFPAY ==
[2024-07-03 12:22] VITALS: BMI 28.4
[2024-07-08] VITALS (7 sets, daily range): BP systolic 122–137; BP diastolic 67–89; PULSE 74–85; RESP 13–16; TEMP 36.6–37.1; O2SAT 96–100; BMI 32.0
--- NOTE | 2024-07-08 | DI.US.S_ITS ---
ULTRASOUND GUIDED WIRE LOCALIZATION LEFT BREAST WITH POST DIGITAL MAMMOGRAPHIC IMAGIN07/08/2024 CLINICAL: Pre-op wire loc. Correlation is made to exams dated: 07/08/2024 mammogram, 06/12/2024 breast MRI, 05/25/2024 ultrasound biopsy, 05/25/2024 mammogram, 04/28/2024 ultrasound, and 04/28/2024 mammogram - [facility]. A wire localization using ultrasound guidance was performed for the marker clip located in the left breast at 1 o'clock middle depth 3 cm from the nipple. This was described on the previous mammography and ultrasound reports. The skin was prepped in the usual manner. Local anesthetic was administered to the access site. A skin nico was made in the breast. The localization was approached at 1 o'clock. A wire was inserted into the targeted area under ultrasound guidance. Post placement digital mammographic imaging demonstrates the tip passes through the targeted area with the tip outside the field of view. Of note, the small satellite lesion seen on prior ultrasound at 1:00 6 cm from the nipple is identified and measures 0.3 cm. The lesion is located 2.5 cm from the biopsy proven malignancy. The skin is marked with a surgical marker and the wire localization is preformed in the 1:00 radian. IMPRESSION: WIRE LOCALIZATION Wire localization for the marker clip in the left breast at 1 o'clock 3 cm from the nipple was successful. The tip is outside the field of view on mammography and is deeper than expected. Small satellite lesion at 1:00 6 cm from the nipple measuring 0.3 cm is again seen. The skin is marked with a surgical marker and the wire localization is preformed in the 1:00 radian. This was discussed with Dr. Johns prior to surgery. This exam was interpreted at Station ID: [id number]. Zachariah Hodge M.D. slc/:07/08/2024 13:50:38
--- NOTE | 2024-07-08 | PATH_ITS ---
[facility] Accession Number: [id number] No. of containers..04 Tissue . 01 Material submitted: . PART A: breast - LEFT BREAST UPPER OUTER QUADRANT MASS, SHORT SUPERIOR LONG PART B: breast - NEW LATERAL MARGIN, LEFT BREAST, LONG LATERAL SHORT SUPERIOR PART C: breast - NEW SUPERIOR MARGIN, LEFT BREAST PART D: axilla - SENTINEL NODE . 01 Diagnosis: A. LEFT BREAST UPPER OUTER QUADRANT MASS, LUMPECTOMY: Two foci of invasive lobular carcinoma, as follows: . Focus 1: Invasive lobular carcinoma with the following characteristics: Histologic type: Lobular. Histologic grade: Grade 2/3 (score 6/9). Glandular/tubular differentiation: Score 3/3. Nuclear pleomorphism: Score 2/3. Mitotic rate: Score 1/3. Size of invasive lobular carcinoma (slide A13): 17 mm. Surgical margins: Negative for invasive carcinoma. Closest margins to invasive carcinoma:5 mm from closest anterior margin (green-ink); 6 mm from closest inferior margin (blue-ink); 8 mm from closest lateral margin (orange-ink); and 8 mm from closest posterior margin (black-ink). Remaining margins more than 10 mm, from tumor. Focus 2: Invasive lobular carcinoma (discontinuous from the larger, previously described focus of lobular carcinoma), with the following characteristics: Histologic type: Lobular. Histologic grade: Grade 2 (score 6/9). Glandular/tubular differentiation: Score 3/3. Nuclear pleomorphism: Score 2/3. Mitotic rate: Score 1/3. Size of invasive lobular carcinoma (slide A3): 5 mm. Surgical margins: Negative for invasive carcinoma. Closest margins to invasive carcinoma: 4 mm from the closest anterior margin (green-ink); 6 mm from the closest lateral margin (orange-ink). Remaining margins more than 10 mm from tumor. . Both foci of invasive lobular carcinoma (largest 17 mm and smallest 5 mm) have similar morphologic characteristics and grade (2/3). . Predictive biomarkers (performed on a previous specimen, #[id number], 2024) are as follows: Estrogen receptor (SP1): Positive (91-100%), strong intensity. Progesterone receptor (1E2): Positive (91-100%), strong intensity. HER2 (4B5): Negative for overexpression (1+). . Additional findings: Previous biopsy changes. Lobular cancerization of ducts. Lobular carcinoma in situ: Not definitely seen. Negative for lymphovascular invasion and perineural invasion. Fibrocystic changes present. Benign fibroadenoma, 11 mm in largest diameter. . Pathologic staging: pT1c,N0,Mx . B. NEW LATERAL MARGIN, LEFT BREAST, EXCISION: Invasive lobular carcinoma is present, grade 2/3, (score 6/9). Size: 4 mm (slide B8). Negative for lymphovascular or perineural invasion. Surgical margins: Negative for invasive carcinoma. Margins closest to invasive carcinoma: 1.5 mm from the closest new lateral margin (blue-ink); 3 mm from the superior old margin (orange-ink); 4 mm from the inferior old margin (green-ink). . C. NEW SUPERIOR MARGIN, LEFT BREAST, EXCISION: No invasive carcinoma is identified. Surgical margins: Unremarkable. . D. SENTINEL LYMPH NODE, EXCISION: Benign lymph node with reactive changes and tattoo pigment. Negative for metastatic carcinoma (on H/E and BELTRAN panepithelial marker immunostain, please see microscopic description). [facility] 07/16/2024 1640 Local . 01 Electronically signed: . Barbra Lopez MD, Pathologist NPI- [id number] . 01 Gross description: . A. Received: In formalin with two patient identifiers and left breast upper outer quadrant mass. Specimen: A previously inked left lumpectomy. Weight: 95 grams. Measurement: 9.2 cm superior to inferior, 5.1 cm medial to lateral, 5.5 cm anterior to posterior. Skin ellipse: Absent. Wire: Present, penetrating laterally and terminating anteromedially. Margins: Inked by the surgeon as follows: Anterior green, inferior blue, lateral orange, medial yellow, posterior black, and superior red. Inking reinforced at the bench. Note: The specimen is irregular in shape; however, orientation is accurate. Sliced: From superior to inferior into 13 slices. Lesion: Three grossly distinct lesions identified. Lesion #1 Description: An ill-defined, pale oliva, firm lesion. Size: 0.4 x 0.3 x 0.3 cm. Slices involved: Slice 4. Biopsy site: Not present within this lesion. Distance to margins: 0.8 cm from the orange margin, 1.0 cm from the green margin, and greater than 1.0 cm from all remaining margins. Lesion #2: An ill-defined pale oliva, firm lesion. Size: 2.7 x 2.3 x 0.4 cm. Slices involved: Slices 7-13. Biopsy site: A Vision-shaped biopsy clip is found within slice 8 at the orange-inked margin. Distance to margins: The lesion is 0.4 cm from the orange-inked margin, 0.6 cm from the green-inked margin, 0.3 cm from the black-inked margin, and greater than 1 cm from all remaining margins. Lesion #3: A grwhbm-ylki-vkhfspe oliva firm lesion. Size: 1.5 x 1.2 x 0.7 cm. Biopsy site: Not found within this lesion. Distance to margins: The lesion grossly involves the yellow and blue-inked margins, is 0.2 cm from the green-inked margin, and is greater than 1 cm from all remaining margins. Fixation: The specimen was removed 07/08/2024, time not provided. Cold ischemic time cannot be calculated. Total fixation time is approximately 65 hours following additional fixation. Harness Worker sections are submitted as follows: A1: Rep slice 1, red margin perpendicular. A2: Rep slice 3, no lesion. A3: Rep slice 4, entire lesion #1 to include nearest margins. A4: Rep slice 4, additional margins yellow/green and black. A5: Rep slice 5, no lesion. A6: Rep slice 6, no lesion. A7-A10: Entire composite slice 8 with biopsy site in A8, lesion 2 in A7-A8, and lesion 3 in A9. A11-14: Composite slice 9 with lesion 2 to nearest black margin in A13 and lesion 3 to nearest margins in A12. A15-A16: Rep slice 13, black/blue margin perpendicular. B. Received: In formalin with two patient identifiers and new lateral margin left breast. Specimen: An oriented left lumpectomy. Weight: 13 grams. Measurement: 7.7 cm from anterior to posterior, 3.9 cm superior to inferior, 1.0 cm medial to lateral. Skin ellipse: Absent. Wire: Absent. Margins: Oriented with a short suture superior and a long suture lateral, per the requisition (orientation discussed with surgeon). Inked as follows: New lateral margin blue, superior old margin orange, inferior old margin green. Sliced: From anterior to posterior into 19 slices. Lesion: No distinct lesions identified. Other: The cut surfaces are yellow to white fibroadipose tissue with fibrous tissue occupying approximately 50% of the cut surface. Fixation: Specimen was removed on 07/08/2024, time not provided. Cold ischemic time cannot be calculated. Total fixation time is approximately 65 hours following additional fixation. Specimen is submitted entirely as follows: B1: Slice 1 perpendicular. B2-B11: Sequential slices 2-18. B12: Slice 19, perpendicular. C. Received in formalin with two patient identifiers and new superior margin left breast, is an unoriented fragment of yellow lobulated fibroadipose tissue weighing 9 grams and measuring 4.7 x 3.6 x 1.2 cm. The external surface is unremarkable. The slightly concave surface is inked black while the slightly convex surface is inked blue. The specimen is serially sectioned into eight slices to reveal yellow soft adipose with less than 10% fibroadipose tissue. No distinct lesions are identified. Harness Worker sections are submitted as follows: C1: Slice 1 perpendicular. C2: Slice 3. C3: Slice 5. C4: Slice 8 perpendicular. D. Received in formalin with two patient identifiers and sentinel node, is a oliva to blue lymph node candidate with a small amount of attached adipose all measuring 1.5 x 1.4 x 0.7 cm. Serially sectioned and submitted entirely in D1. ([id number]) /MRV 07/16/2024 [facility] Local . 01 Microscopic: . A, B. P63 immunostain is performed on blocks A5 and B8 to evaluate for invasive carcinoma to the closest margins, and results support the diagnoses. . D. BELTRAN immunostain performed on block D1 supports the diagnosis and supports absence of invasive carcinoma on the sentinel lymph node. . Technical note: * This test was developed and the performance characteristics were validated by [employer]. It has not been cleared or approved by the U.S. Food and Drug Administration. . 01 Pathologist provided ICD-10: C50.812 . 01 CPT . 981506, 724655, 335025, 974124, I71045 Specimen Comment: A courtesy copy of this report has been sent to [phone] Performed at: [address] [id number] MD Julio Bustos MD Phone: [phone]
--- NOTE | 2024-07-08 | DI.MG.S_ITS ---
UNILATERAL LEFT DIGITAL DIAGNOSTIC MAMMOGRAM 3D/2D - LEFT BREAST POST-PROCEDURE IMAGING FOR MARKER PLACEMENT: 07/08/2024 CLINICAL: Left breast wire localization. Comparison is made to exams dated: 06/12/2024 breast MRI, 05/25/2024 ultrasound biopsy, 05/25/2024 mammogram, 04/29/2023 ultrasound, 04/28/2024 mammogram, and 04/28/2024 ultrasound - [facility]. The breasts are heterogeneously dense, which may obscure small masses (category c / 51-75% glandular tissue). Left breast vision clip in the 1:00 region posterior depth. The localization wire which was placed under ultrasound guidance is immediately adjacent to the clip. However, the wire is too deep and the tip is outside the field of view. IMPRESSION: [id number]-CNLAEH MALIGNANCY Localization wire is immediately adjacent to the prior biopsy clip. However, the wire tip is deep to the biopsy clip and can be pulled back 2-3 cm. Exam findings were discussed with Dr. Johns shortly after the localization procedure. This exam was interpreted at Station ID: [id number]. Electronically Signed By: Zachariah Hodge M.D. slc/:07/08/2024 11:11:33 ACR BI-RADS Category 6: Prfih-Ipackw-Oodwmv Malignancy
--- NOTE | 2024-07-08 08:40 | SUR.PREOP ---
patient to radiology in wheelchair.
--- NOTE | 2024-07-08 10:50 | SUR.PREOP ---
patient back from radiology. ambulated to the bathroom with steady gait. patient back in bed. patient given warm blankets and call light.
--- NOTE | 2024-07-08 11:37 | PM.PREOP ---
Pre-operative Note COVID-19 COVID-19 status: Not tested Interval Note History & Physical reviewed/Exam performed by Physician: Yes Changes to H&P: No ASA Class (for procedural sedation): II
[2024-07-08] MEDS: CEFAZOLIN 2 GM/100 ML PREMIX 100 ML IV (12:25)
--- NOTE | 2024-07-08 12:32 | SUR.OPER ---
Supine on padded OR bed, head on pillow, arms secured on padded arm boards at <90 degrees abduction, legs uncrossed, safety belt at thigh, tape over blanket over lower legs.
[2024-07-08] MEDS: METHYLENE BLUE 50 MG/10 ML VIAL 25 MG INJ (13:19)
[2024-07-08] MEDS: BUPIVACAINE 0.5% W/ EPI (PF) 10 ML VIAL 30 ML INJ (13:21)
--- NOTE | 2024-07-08 13:51 | PM.OP.1 ---
Operative Date/Time/Diagnoses Date of procedure: 07/08/24 Time of procedure: 13:51 Pre-op diagnosis: Left breast cancer Post-op diagnosis: same Procedure & Clinicians Procedure: Left wire localization lumpectomy and sentinel lymph node biopsy Same procedure as scheduled: Yes Surgeon: Kishor Johns Drying Room Supervisor: Aldo Chacko Anesthesia Type: General Operative Notes Procedure in detail: The patient had a wire localization performed at Radiology prior to arrival in the perioperative area. The patient was brought to the operating room, placed on the table in the supine position, general anesthesia was induced. Arms were abducted on arm boards. The left breast was prepped and draped in the usual fashion. A time-out was performed. We injected about 5 mL of straight methylene blue at the superior areolar border of the left breast. The left breast was then massaged for 5 minutes. We made a 6 cm incision just lateral to the wire. We created flaps superior and inferior to the incision and then dissected down to the chest wall keeping the wire within the center portion of specimen. Upon dissecting at the lateral aspect of the specimen we did see the lateral edge of the biopsy clip. We then stopped dissecting in that plane and took a wider path around the specimen. We reached the lateral pectoral fascia at the deepest aspect of the dissection. We placed a short stitch at the superior aspect of the specimen and a long stitch at the lateral aspect. We then painted the specimen according to the margin marker manufacture's specifications. Green=anterior Blue=inferior [place]=lateral Yellow=medial Black=posterior Red=superior The specimen was sent to Radiology for specimen mammogram. Because we had seen the biopsy clip alone the lateral margin we took an additional new lateral margin from the biopsy cavity. This was marked with a short stitch superior and long stitch lateral. We also took an additional superior margin because of the were some questionable additional findings on preoperative imaging suggesting a small lesion 2.5 cm superior to the original lesion. We then performed a left sentinel lymph node biopsy. We made a 5 cm incision just at the inferior hairline. We entered the axillary cavity. There was no strong lymphoscintigraphy signal but there was a single blue-stained node which was dissected out of the axilla. There was no detectable ex vivo signal from lymphoscintigraphy. The node was sent as the sentinel node due to the presence of blue dye. We then irrigated both wound cavities with sterile saline and water. Local anesthetic was injected into the muscle layer of the lumpectomy site. A few bleeders were cauterized. We then closed the incisions in layers using multiple interrupted 3-0 Vicryl dermal sutures followed by a running 4-0 Monocryl subcuticular closure. Radiology called the OR reporting that the clip was visualized within the specimen. Steri-Strips were applied followed by dry gauze and a breast binder. EBL: 20 mL Aldo GAN provided assistance with exposure, retraction and closure of incisions. Post-operative Condition: stable Disposition: PACU
[2024-07-08] MEDS: OXYCODONE/ACETAMINOPHEN 5/325 TABLET 1 TAB PO (14:25)
== END 2024-07-08 15:01 | disposition home or self-care (01) ==
PROVIDERS: PCP Family Medicine; Referring Provider Surgery; Visit Provider Surgery
PROC: (CPT 38500; principal; 2024-07-08 11:15)
DX: C50.412 Malignant neoplasm of upper-outer quadrant of left female breast (principal); Z17.0 Estrogen receptor positive status [ER+]; Z17.21 Progesterone receptor positive status; Z17.32 Human epidermal growth factor receptor 2 negative status
CPT/HCPCS: 38500; 19301; 19285; 38792; 76098; 77065; 81025; A9541; C1819; J0690; J2250; J2405; J2704; J3010; Q9968

== ENCOUNTER 2024-12-21 09:47 | Day surgery (SDC) | payer BC, SELFPAY ==
--- NOTE | 2024-12-21 | PATH_ITS ---
[facility] Accession Number: [id number] No. of containers..01 Tissue . 01 Material submitted: . colon - COLON, POLYP AT 40CM . 01 Diagnosis: COLON POLYP AT 40 CM, BIOPSY: Tubular adenoma. [facility] 12/28/2024 1200 Local . 01 Electronically signed: . Renan Carmichael MD, Dermatopathologist NPI- [id number] . 01 Gross description: . COLON, POLYP AT 40CM: Received in formalin is 1 fragment(s) of oliva, soft tissue measuring 0.7 x 0.6 x 0.6 cm submitted entirely in 1 cassette(s) /TRINH 12/23/2024 1846 Local . 01 Pathologist provided ICD-10: D12.6 . 01 CPT . 676784 Specimen Comment: A courtesy copy of this report has been sent to [phone] Performed at: [address] [facility] [address], [place], [place] [id number] MD Julio Bustos MD Phone: [phone]
[2024-12-21] MEDS: LACTATED RINGERS 1,000 ML 42 ML IV (10:54)
[2024-12-21 10:55] VITALS: BP 122/87; PULSE 82; RESP 16; TEMP 37.3; O2SAT 98
--- NOTE | 2024-12-21 11:17 | PM.HP.IH.1 ---
History of Present Illness History of Present Illness Chief complaint: Screening Colonoscopy [facility] Surgical History (Updated 06/08/24 @ 10:47 by Teddy Dockery RN) Hx of cholecystectomy Social History household members: family Smoking Status: Never smoker alcohol intake: never Meds Home Medications and Allergies Home Medications ?Medication ?Instructions ?Recorded ?Confirmed ?Type cholecalciferol (vitamin D3) 125 5,000 unit PO DAILY 12/21/24 12/21/24 History mcg (5,000 unit) tablet (Vitamin D3) gabapentin 300 mg capsule 300 mg PO BEDTIME 12/21/24 12/21/24 History leuprolide (3 month) 22.5 mg (3 11.25 mg IM [id number] 12/21/24 12/21/24 History month) intramuscular suspension omeprazole 20 mg capsule,delayed 20 mg PO DAILY 12/21/24 12/21/24 History release tamoxifen 20 mg tablet 20 mg PO DAILY 12/21/24 12/21/24 History Allergies Allergy/AdvReac Type Severity Reaction Status Date / Time Anesthetics - Donna Type- Allergy Severe Anaphylaxis Verified 12/21/24 10:49 Parabens minocycline Allergy Verified 12/21/24 10:36 Tetracyclines Allergy Rash Verified 12/21/24 10:36 Exam Vital Signs (past 8 hours): - 12/21/24 10:55 Temperature 99.2 F Pulse Rate 82 Respiratory Rate 16 Blood Pressure 122/87 Pulse Oximetry 98 Oxygen Delivery Method Room Air Oxygen Delivery Method Room Air Narrative Exam Narrative: Oropharynx free of lesions Chest clear to auscultation percussion Cardiac exam reveals no S3 or murmur Assessment & Plan Assessment & Plan narrative: First screening colonoscopy. Risks, benefits, alternatives have been explained. Time-Based Coding :: [TOTAL MINUTES] spent with patient and on the chart (including review of chart, obtaining history, exam, reviewing outside data, placing orders, documenting exam and treatment plan, and counseling patient) on [DATE]. PROFEE Herpetology Teacher Document charge(s): No
--- NOTE | 2024-12-21 11:18 | PM.OP.COLON ---
Operative Date/Time/Diagnoses Date of procedure: 12/21/24 Time of procedure: 11:39 Pre-op diagnosis: See indication and findings Post-op diagnosis: same Procedure & Clinicians Study performed: Colonoscopy Same procedure(s) as scheduled: Yes Indications: First screening Surgeon: Isael Chilel Procedure Notes Procedure in detail: After informed consent was obtained the patient was placed in left lateral decubitus position. The video colonoscope was introduced the rectum slowly advanced cecum. Preparation was good. On slow withdrawal mucosa was carefully examined. The scope was removed. The patient tolerated procedure well. Blood loss none Complications none Sedation mac Findings 1. 1 cm semi pedunculated polyp at 40 cm from the anal verge. This was cold snared and removed completely. 2. Otherwise negative colonoscopy to cecum We will await biopsy reports however I suspect with the size polyp she will need follow-up in 3 years
[2024-12-21 11:42] VITALS: BP 106/65; PULSE 81; RESP 14; TEMP 36.7; O2SAT 98
[2024-12-21 11:47] VITALS: BP 117/69; PULSE 81; RESP 13; O2SAT 98
[2024-12-21 11:52] VITALS: BP 108/87; PULSE 73; RESP 13; O2SAT 99
[2024-12-21 12:06] VITALS: BP 117/81; PULSE 69; RESP 16; TEMP 36.7; O2SAT 99
== END 2024-12-21 12:00 | disposition home or self-care (01) ==
PROVIDERS: PCP Family Medicine; Referring Provider Internal Medicine Gastroenterology; Visit Provider Internal Medicine Gastroenterology
PROC: 0DJD8ZZ Inspection of Lower Intestinal Tract, Via Natural or Artificial Opening Endoscopic (ICD-10-PCS; CPT 45378; principal; 2024-12-21 11:30)
DX: Z12.11 Encounter for screening for malignant neoplasm of colon (principal); D12.6 Benign neoplasm of colon, unspecified
CPT/HCPCS: 45385; J2704

== ENCOUNTER → 2025-01-02 06:59 | Outpatient (CLI) | payer BC, SELFPAY ==
--- NOTE | 2025-01-02 07:02 | DI.MRI.S_ITS ---
PROCEDURE: MR ANKLE LT WO/W CON INDICATIONS: Achilles,tendonosis TECHNIQUE: Noncontrast sagittal T1 spin echo and T2 fast spin echo with fat saturation, axial proton density fast spin echo and T2 fast spin echo with fat saturation, axial T1 spin echo with fat saturation, coronal T1 spin echo and T2 fast spin echo with fat saturation through the ankle/hindfoot. Post-contrast axial, coronal, and sagittal T1 spin echo with fat saturation through the ankle/hindfoot. COMPARISON: None. FINDINGS: Image quality: Excellent. Bones and joints: Fiducial markers placed over posterior medial aspect of distal lower leg at the level of tibiotalar joint. Osteochondral injuries are noted involving medial weight-bearing portion of talar dome measures up to 2-3 mm in size with surrounding edema. Well-defined plantar calcaneal enthesophyte is seen with mild edema near plantar fascia insertion. Small dorsal calcaneal enthesophyte is also seen. No fracture or dislocation. Small tibiotalar joint effusion, no loose bodies. No area of abnormal intraosseous enhancement. Medial structures: The posterior tibialis, flexor digitorum longus, and flexor hallucis longus tendons are intact. Moderate amount of fluid distending posterior tibialis tendon sheath at the level of mid to distal talus and talonavicular joint is seen. The posterior tibial neurovascular bundle appears normal within the tarsal tunnel, without extrinsic mass effect. The deltoid ligament and spring ligament are mildly thickened near their distal insertion. Lateral structures: The anterior talofibular, calcaneofibular, and posterior talofibular ligaments appear intact. More superiorly, the anterior and posterior tibiofibular ligaments appear intact, as is the intermalleolar ligament. The tibiofibular syndesmosis is normal in width at 2 mm or less. The peroneus brevis tendon is intact. Mildly thickened peroneus longus tendon is seen at the level of mid to distal calcaneus and calcaneocuboid joint. The sinus tarsi demonstrates normal fatty signal, without edema, fibrosis, or cyst formation. Anterior structures: The tibialis anterior, extensor hallucis longus, and extensor digitorum longus tendons appear intact. The dorsal talonavicular ligament appears intact. Posterior and plantar structures: Mildly thickened Achilles tendon extending to its posterior calcaneal insertion is seen without tendon rupture. Mildly thickened medial band of plantar fascia at its calcaneal insertion is also seen. No abductor digiti quinti muscle atrophy to suggest Escudero neuropathy. IMPRESSION: 1. No ankle fracture or dislocation. No area of abnormal intraosseous enhancement. Osteochondral injury involving medial aspect of talar dome weight-bearing portion measures 2-3 mm in size. Small joint effusion, no loose bodies. 2. Low to moderate grade tenosynovitis involving posterior tibialis tendon at the level of mid to distal talus and talonavicular joint. 3. Low-grade medial ankle ligament sprain near its their distal insertions. No full-thickness ankle ligament rupture. 4. Mild tendinosis involving peroneus longus tendon at the level of mid to distal calcaneus and calcaneocuboid joint. 5. Well-defined plantar and dorsal calcaneal enthesophytes. Distal Achilles tendinosis extending to its posterior calcaneal insertion. No Achilles tendon rupture. 6. Mildly thickened medial band of plantar fascia at its plantar calcaneal insertion suggestive of low-grade plantar fasciitis. 7. No enhancing soft tissue mass or drainable fluid collection. Dictated by: Pop Irvin M.D. on 01/04/2025 at 8:51 Approved by: Pop Irvin M.D. on 01/04/2025 at 8:56
== END ==
PROVIDERS: PCP Family Medicine; Referring Provider Podiatrist; Visit Provider Podiatrist
DX: S93.492A Sprain of other ligament of left ankle, initial encounter (principal); M67.88 Other specified disorders of synovium and tendon, other site; M25.472 Effusion, left ankle; M65.972 Unspecified synovitis and tenosynovitis, left ankle and foot; M77.32 Calcaneal spur, left foot
CPT/HCPCS: 73723; A9579